=== PATIENT | male | born 1960 | race Caucasian/White ===

== ENCOUNTER 2016-11-29 08:34 | Emergency (ER) | payer OTHER ==
[~2016-11-29] VITALS: Ht 175.3 cm; Wt 75.0 kg
[~2016-11-29 08:34] MED LIST: AUGMENTIN875 MG PO; AZITHROMYCIN250 MG PO; BACTRIM DS PO; CALMOSEPTINE O120 GM TP; CARBIDOPA-LEVO1 EAC7 PO; CARBIDOPA/LEVO1 EACH PO; CEFDINIR250 MG/51 GT; CEFDINIR300 MG PO; CEFTIN500 MG GT; CEFTIN500 MG PO; CLONAZEPAM0.5 MG PO; CLONAZEPAM1 MG PO; CLOZAPINE25 MG PO; CLOZARIL25 MG GT; CRANBERRY400 M1 PO; CRANBERRY400 MG PO; Cranberry PO; DEPAKOTE500 MG GT; DEPAKOTE500 MG PO; DESITIN113 G1 TP; DIVALPROEX SOD500 MG PO; DOCUSATE SODIU100 MG PO; DOXYCYCLINE HY100 M3 PO; DUONEB 2.5-0.5 M3 ML IH; Depakote PO; ESCITALOPRAM OX10 MG PO; FLORASTOR250 MG PO; FUROSEMIDE20 MG GT; FUROSEMIDE20 MG PO; FUROSEMIDE40 MG GT; HIPREX1 GM PO; HYDROCODON-ACE1 EAC7 PO; K-DUR20 MEQ PO; KEFLEX500 MG PO; KLONOPIN1 MG GT; KlonoPIN PO; LASIX20 MG PO; LEVAQUIN750 MG PO; LEVOFLOXACIN500 MG PO; LEXAPRO10 MG GT; LEXAPRO10 MG PO; LINZESS290 MCG PO; LOPRESSOR25 MG GT; LOTRISONE15 GM TP; Lasix PO; Lexapro PO; METHENAMINE HIPP1 G1 GT; METHENAMINE HIPP1 G1 PO; METHENAMINE HIPP1 GM PO; METOPROLOL SUCC25 MG GT; METOPROLOL SUCC25 MG PO; METOPROLOL TART25 MG PO; MIRALAX17 GM GT; MIRALAX17 GM PO; MIRALAX255 GM PO; MUCINEX D ER T1 EACH PO; NEUPRO; NEUPRO1 EAC3 TD; NIZORAL 2% CREA15 GM TP; NIZORAL SHAMPO120 ML TP; NIZORAL120 ML PO; NYSTOP60 GM TP; PEDIADERM TA 0115 GM TP; POLYETHYLENE GL17 GM GT; PREDNISONE20 MG PO; SEROQUEL50 MG PO; SILVADENE20 GM TP; SINEMET CR 25-1 EACH PO; Sinemet 25-100 PO; THERACRAN650 MG GT; THERACRAN650 MG PO; TYLENOL EXTRA500 MG GT; VALPROIC A250 MG/5 M GT; VENTOLIN HFA18 GM IH; XARELTO15 MG PO; XARELTO20 MG GT; XARELTO20 MG PO; ZITHROMAX Z-PA250 MG PO; [UNRECOGNIZED DRUG - OTHER] TP
[2016-11-29] MEDS ORDERED: MIRALAX17 GM PO (09:01)
[2016-11-29] MEDS ORDERED: FEOSOL300 MG/5 M PO (09:02)
[2016-11-29 14:10] VITALS: BP 119/73
== END 2016-11-29 14:11 | disposition home or self-care (01) ==
LOC: EME 08:34
PROC: 0D20XUZ Change Feeding Device in Upper Intestinal Tract, External Approach (ICD-10-PCS; principal; 2016-11-29)
DX: K94.29 Other complications of gastrostomy (principal); G80.9 Cerebral palsy, unspecified; F79 Unspecified intellectual disabilities; J44.9 Chronic obstructive pulmonary disease, unspecified; G20 Parkinson's disease; J45.909 Unspecified asthma, uncomplicated; I10 Essential (primary) hypertension; Z86.73 Personal history of transient ischemic attack (TIA), and cerebral infarction without residual deficits; Z87.440 Personal history of urinary (tract) infections; Z87.820 Personal history of traumatic brain injury; Z86.14 Personal history of Methicillin resistant Staphylococcus aureus infection; Z87.891 Personal history of nicotine dependence
CPT/HCPCS: 74000; 99281; 99284; B4087

== ENCOUNTER → 2016-12-29 | Outpatient (CLI) | payer OTHER ==
[~2016-12-29] MED LIST changes: +FEOSOL300 MG/5 M PO
== END | disposition home or self-care (01) ==
LOC: AMB 12:37
DX: K94.23 Gastrostomy malfunction (principal); J45.909 Unspecified asthma, uncomplicated; Z86.59 Personal history of other mental and behavioral disorders; G20 Parkinson's disease

== ENCOUNTER 2017-02-18 10:46 | Inpatient (IN) | payer OTHER ==
[~2017-02-18] VITALS: Ht 175.3 cm; Wt 71.2 kg
[2017-02-18 12:51] LABS: EOSINOPHIL (%) 0.5 % (0-5); IMMATURE GRANULOCYTE (%) 0.6 % (0.0-0.7); IMMATURE GRANULOCYTE COUNT 0.1 K/uL; INSTRUMENT ABS NEUTROPHIL CT 5.2 K/uL; LYMPHOCYTE COUNT 2.1 K/uL (1.0-2.8); MCH 30.1 PG (29.0-34.0); MCHC 29.6 G/DL (30.0-36.0); MCV 101.4 FL (86-99); MEAN PLAT.VOLUME 10.9 uM^3 (9.0-12.4); MONOCYTE (%) 7.3 % (3-12); MONOCYTE COUNT 0.6 K/uL (0-0.8); NEUTROPHIL (%) 65.1 % (45-76); NEUTROPHIL COUNT 5.2 K/uL (1.8-6.4); PLATELET COUNT 118 K/uL (156-360); RBC DIS.WIDTH-CV 16.9 % (11.8-14.6); RBC DIS.WIDTH-SD 62.6 % (39-53); RED BLOOD COUNT 2.76 M/uL (4.00-5.50); WHITE BLOOD COUNT 8.1 K/uL (4.1-10.2)
[2017-02-18 13:03] LABS: CHLORIDE 113 mEq/L (99-109); POTASSIUM 5.4 mEq/L (3.7-5.4); SODIUM 155 mEq/L (136-147)
[2017-02-18 13:05] LABS: GLUCOSE 80 mg/dL (70-99)
[2017-02-18 13:06] LABS: ANION GAP 10 MEQ/L (2-14)
[2017-02-18 13:07] LABS: TOTAL BILIRUBIN 0.2 mg/dL (0.0-1.0)
[2017-02-18 13:08] LABS: ALKALINE PHOSPHATASE 69 IU/L (3-129)
[2017-02-18 13:09] LABS: GFR ESTIMATE (CALCULATED) 24 mL/min/
[2017-02-18 13:12] LABS: CREATINE KINASE 33 IU/L (1-294); LIPASE 66 U/L (1.0-51.0)
[2017-02-18 13:13] LABS: UREA NITROGEN (BUN) 109 mg/dL (9-23)
[2017-02-18 13:35] LABS: ADD MIUA? YES; BILIRUBIN NEGATIVE; BLOOD LARGE; COLOR AMBER ((YELLOW)); GLUCOSE (STRIP) NEGATIVE; KETONES NEGATIVE; LEUKOCYTES LARGE; NITRITE NEGATIVE; PROTEIN (STRIP) 100; SPECIFIC GRAVITY 1.011 (1.000-1.030); UROBILINOGEN 0.2 MG/DL (0.2-1.0)
[2017-02-18 14:45] LABS: WHITE BLOOD CELLS TNTC /HPF (0-5)
[2017-02-18] MEDS ORDERED: FEOSOL44 MG/ML GT (17:11)
[2017-02-18] MEDS ORDERED: THERACRAN650 MG GT (17:13)
[2017-02-18] MEDS ORDERED: METHENAMINE HIPP1 G1 GT (17:13)
[2017-02-18] MEDS ORDERED: NEUPRO1 EAC3 TD (17:13)
[2017-02-18] MEDS ORDERED: GENTAMICIN SULFA5 ML BOTH EYES (17:13)
[2017-02-18] MEDS ORDERED: BIOTENE MOISTUR45 ML PO (17:14)
[2017-02-18 20:00] VITALS: BP 127/67
[2017-02-19] VITALS: BP 148/84
[2017-02-19 04:00] VITALS: BP 122/70
[2017-02-19 05:12] LABS: METH RESISTANT S AUREUS PCR POSITIVE (NEGATIVE)
[2017-02-19 05:19] LABS: PROBE CHECK PASS
[2017-02-19 07:43] LABS: HEMATOCRIT 27.6 % (38.0-50.0); MCH 30.1 PG (29.0-34.0); MCHC 29.3 G/DL (30.0-36.0); MCV 102.6 FL (86-99); MEAN PLAT.VOLUME 11.4 uM^3 (9.0-12.4); NRBC (%) 0.3 /100 WBC (0-0); PLATELET COUNT 121 K/uL (156-360); RBC DIS.WIDTH-SD 63.3 % (39-53); RED BLOOD COUNT 2.69 M/uL (4.00-5.50); WHITE BLOOD COUNT 7.9 K/uL (4.1-10.2)
[2017-02-19 07:51] VITALS: BP 121/61
[2017-02-19 07:58] LABS: ANION GAP 9 MEQ/L (2-14); CHLORIDE 118 MEQ/L (99-109); GFR ESTIMATE (CALCULATED) 31 mL/min/; GLUCOSE 80 mg/dL (70-99); POTASSIUM 4.4 MEQ/L (3.7-5.4); SAMPLE HEMOLYSIS CHECK 0; SAMPLE ICTERIC CHECK 0; SAMPLE LIPEMIA CHECK 0; SODIUM 157 MEQ/L (136-147); UREA NITROGEN (BUN) 85 mg/dL (9-23)
[2017-02-19 11:01] VITALS: BP 125/68
[2017-02-19 15:27] VITALS: BP 120/79
[2017-02-19 20:00] VITALS: BP 156/95
[2017-02-19 23:06] LABS: POINT-OF-CARE METER ID UU14188625
[2017-02-20] VITALS (7 sets, daily range): BP systolic 104–135; BP diastolic 59–72
[2017-02-20 05:48] LABS: HEMATOCRIT 24.1 % (38.0-50.0); MCHC 31.1 G/DL (30.0-36.0); MCV 99.6 FL (86-99); MEAN PLAT.VOLUME 10.7 uM^3 (9.0-12.4); PLATELET COUNT 106 K/uL (156-360); RBC DIS.WIDTH-CV 16.5 % (11.8-14.6); RED BLOOD COUNT 2.42 M/uL (4.00-5.50)
[2017-02-20 09:51] LABS: CHLORIDE 112 mEq/L (99-109); POTASSIUM 4.7 mEq/L (3.7-5.4)
[2017-02-20 09:53] LABS: GLUCOSE 91 mg/dL (70-99)
[2017-02-20 09:55] LABS: ANION GAP 9 MEQ/L (2-14); SODIUM 144 mEq/L (136-147)
[2017-02-20 09:57] LABS: GFR ESTIMATE (CALCULATED) 42 mL/min/
[2017-02-20 09:58] LABS: UREA NITROGEN (BUN) 68 mg/dL (9-23)
[2017-02-20 12:16] LABS: POINT-OF-CARE METER ID UU14174225
[2017-02-20 12:44] LABS: ADD MIUA? YES; BILIRUBIN NEGATIVE; BLOOD LARGE; COLOR YELLOW ((YELLOW)); GLUCOSE (STRIP) NEGATIVE; KETONES NEGATIVE; LEUKOCYTES MODERATE; NITRITE NEGATIVE; PROTEIN (STRIP) 100; SPECIFIC GRAVITY 1.006 (1.000-1.030); UROBILINOGEN 0.2 MG/DL (0.2-1.0)
[2017-02-20 14:17] LABS: RED BLOOD CELLS TNTC /HPF (0-5)
[2017-02-20 14:19] LABS: BACTERIA 1+ /HPF; EPITHELIAL CELLS 1+ /HPF; MUCUS NONE SEEN /LPF; UCUL ADDED? NO
[2017-02-20 16:24] LABS: POINT-OF-CARE METER ID UU14174225
[2017-02-21 04:00] VITALS: BP 121/65
[2017-02-21 07:42] LABS: ANION GAP 7 MEQ/L (2-14); GFR ESTIMATE (CALCULATED) 48 mL/min/; GLUCOSE 81 mg/dL (70-99); POTASSIUM 4.1 MEQ/L (3.7-5.4); SAMPLE HEMOLYSIS CHECK 0; SAMPLE ICTERIC CHECK 0; SAMPLE LIPEMIA CHECK 0; SODIUM 138 MEQ/L (136-147); UREA NITROGEN (BUN) 50 mg/dL (9-23)
[2017-02-21 07:43] LABS: CHLORIDE 106 MEQ/L (99-109)
[2017-02-21 09:10] VITALS: BP 124/65
[2017-02-21 09:43] LABS: HEMATOCRIT 25.3 % (38.0-50.0); MCH 30.2 PG (29.0-34.0); MCHC 31.6 G/DL (30.0-36.0); MEAN PLAT.VOLUME 10.9 uM^3 (9.0-12.4); PLATELET COUNT 102 K/uL (156-360); RBC DIS.WIDTH-CV 16.1 % (11.8-14.6); RBC DIS.WIDTH-SD 55.8 % (39-53); RED BLOOD COUNT 2.65 M/uL (4.00-5.50); WHITE BLOOD COUNT 7.4 K/uL (4.1-10.2)
[2017-02-21 09:54] LABS: MCV 95.5 FL (86-99)
[2017-02-21 12:59] VITALS: BP 122/64
[2017-02-21 20:21] VITALS: BP 139/67
[2017-02-22 00:25] VITALS: BP 157/74
[2017-02-22 06:11] LABS: POINT-OF-CARE METER ID UU14188625
[2017-02-22 07:51] LABS: ANION GAP 7 MEQ/L (2-14); CHLORIDE 104 MEQ/L (99-109); GFR ESTIMATE (CALCULATED) 44 mL/min/; GLUCOSE 74 mg/dL (70-99); POTASSIUM 4.3 MEQ/L (3.7-5.4); SAMPLE HEMOLYSIS CHECK 0; SAMPLE ICTERIC CHECK 0; SAMPLE LIPEMIA CHECK 0; SODIUM 138 MEQ/L (136-147); UREA NITROGEN (BUN) 51 mg/dL (9-23)
[2017-02-22 07:59] VITALS: BP 119/62
[2017-02-22 15:35] VITALS: BP 120/68
[2017-02-23 04:00] VITALS: BP 109/68
[2017-02-23 08:10] VITALS: BP 131/76
[2017-02-23 09:47] LABS: ANION GAP 7 MEQ/L (2-14); CHLORIDE 105 MEQ/L (99-109); GFR ESTIMATE (CALCULATED) 42 mL/min/; GLUCOSE 83 mg/dL (70-99); POTASSIUM 3.6 MEQ/L (3.7-5.4); SAMPLE HEMOLYSIS CHECK 0; SAMPLE ICTERIC CHECK 0; SAMPLE LIPEMIA CHECK 0; SODIUM 139 MEQ/L (136-147); UREA NITROGEN (BUN) 59 mg/dL (9-23)
== END 2017-02-23 15:11 | disposition home health service (06) | DRG 683 ==
LOC: EME 10:46 → 5SOUTH 16:35 → EDOF 16:35 → 5SOUTH 17:57
PROVIDERS: Hospitalist; Internal Medicine; Internal Medicine Nephrology; Nurse Practitioner Adult Health; Physician Assistant
DX: N17.9 Acute kidney failure, unspecified (principal); N39.0 Urinary tract infection, site not specified; E87.0 Hyperosmolality and hypernatremia; E44.1 Mild protein-calorie malnutrition; L89.512 Pressure ulcer of right ankle, stage 2; G20 Parkinson's disease; D69.6 Thrombocytopenia, unspecified; E86.0 Dehydration; Z68.23 Body mass index [BMI] 23.0-23.9, adult; D50.9 Iron deficiency anemia, unspecified; K59.00 Constipation, unspecified; E87.5 Hyperkalemia; I10 Essential (primary) hypertension; F32.9 Major depressive disorder, single episode, unspecified; N28.1 Cyst of kidney, acquired; F79 Unspecified intellectual disabilities; Z93.1 Gastrostomy status; Z87.820 Personal history of traumatic brain injury; Z85.038 Personal history of other malignant neoplasm of large intestine
CPT/HCPCS: 71250; 74176; 76770; 80048; 80048 91; 80053; 80069; 81003; 82550; 82948; 83605; 83690; 85025; 85027; 87040; 87086; 87641; 94640; 94640 76; 94760; 99202; 99281; 99285; J0696; J7030; J7050; J7070

== ENCOUNTER 2017-02-28 12:35 | Inpatient (IN) | payer OTHER ==
[~2017-02-28] VITALS: Ht 175.3 cm; Wt 72.1 kg
[~2017-02-28 12:35] MED LIST changes: +BIOTENE MOISTUR45 ML PO; +FEOSOL44 MG/ML GT; +GENTAMICIN SULFA5 ML BOTH EYES
[2017-02-28 13:56] LABS: EOSINOPHIL (%) 0.8 % (0-5); EOSINOPHIL COUNT 0.1 K/uL (0-0.3); HEMATOCRIT 23.9 % (38.0-50.0); IMMATURE GRANULOCYTE (%) 0.5 % (0.0-0.7); INSTRUMENT ABS NEUTROPHIL CT 4.3 K/uL; LYMPHOCYTE COUNT 1.9 K/uL (1.0-2.8); MCH 30.5 PG (29.0-34.0); MCHC 30.5 G/DL (30.0-36.0); MONOCYTE (%) 5.9 % (3-12); MONOCYTE COUNT 0.4 K/uL (0-0.8); NEUTROPHIL (%) 64.8 % (45-76); NEUTROPHIL COUNT 4.3 K/uL (1.8-6.4); RBC DIS.WIDTH-CV 16.6 % (11.8-14.6); RBC DIS.WIDTH-SD 61.7 % (39-53); RED BLOOD COUNT 2.39 M/uL (4.00-5.50); WHITE BLOOD COUNT 6.7 K/uL (4.1-10.2)
[2017-02-28 14:01] LABS: CHLORIDE 107 mEq/L (99-109); SODIUM 141 mEq/L (136-147)
[2017-02-28 14:02] LABS: GLUCOSE 82 mg/dL (70-99)
[2017-02-28 14:04] LABS: ANION GAP 8 MEQ/L (2-14)
[2017-02-28 14:06] LABS: GFR ESTIMATE (CALCULATED) 39 mL/min/
[2017-02-28 14:07] LABS: UREA NITROGEN (BUN) 62 mg/dL (9-23)
[2017-02-28 14:12] LABS: POTASSIUM 4.8 mEq/L (3.7-5.4)
[2017-02-28 14:13] LABS: ADD MIUA? YES; BILIRUBIN NEGATIVE; BLOOD LARGE; COLOR YELLOW ((YELLOW)); GLUCOSE (STRIP) NEGATIVE; KETONES NEGATIVE; LEUKOCYTES TRACE; NITRITE NEGATIVE; PROTEIN (STRIP) 100; UROBILINOGEN 0.2 MG/DL (0.2-1.0)
[2017-02-28 14:13] LABS: TROP-I INTERPRETATION NEGATIVE; TROPONIN-I < 0.01 ng/mL (0.0-0.30)
[2017-02-28 14:22] LABS: BACTERIA NONE SEEN /HPF; EPITHELIAL CELLS 2+ /HPF; MUCUS NONE SEEN /LPF; RED BLOOD CELLS TNTC /HPF (0-5); UCUL ADDED? NO; WHITE BLOOD CELLS 20-30 /HPF (0-5)
[2017-02-28 15:15] LABS: MEAN PLAT.VOLUME 11.3 uM^3 (9.0-12.4); PLAT.SUFFICIENCY DECREASED; PLATELET COUNT 118 K/uL (156-360)
[2017-02-28] MEDS ORDERED: ALOE VERA TP (18:32)
[2017-02-28 22:45] VITALS: BP 161/72
[2017-02-28 23:19] LABS: HEMATOCRIT 24.3 % (38.0-50.0); MCV 100.4 FL (86-99)
[2017-03-01] VITALS (13 sets, daily range): BP systolic 122–153; BP diastolic 60–97
[2017-03-01 07:47] LABS: ANION GAP 5 MEQ/L (2-14); CHLORIDE 116 MEQ/L (99-109); GFR ESTIMATE (CALCULATED) 44 mL/min/; GLUCOSE 75 mg/dL (70-99); POTASSIUM 4.9 MEQ/L (3.7-5.4); SAMPLE HEMOLYSIS CHECK 0; SAMPLE ICTERIC CHECK 0; SAMPLE LIPEMIA CHECK 0; SODIUM 146 MEQ/L (136-147); UREA NITROGEN (BUN) 49 mg/dL (9-23)
[2017-03-01 07:55] LABS: EOSINOPHIL COUNT 0.1 K/uL (0-0.3); HEMATOCRIT 22.1 % (38.0-50.0); IMMATURE GRANULOCYTE (%) 0.3 % (0.0-0.7); INSTRUMENT ABS NEUTROPHIL CT 3.4 K/uL; LYMPHOCYTE COUNT 1.8 K/uL (1.0-2.8); MCH 30.6 PG (29.0-34.0); MCHC 30.8 G/DL (30.0-36.0); MCV 99.5 FL (86-99); MEAN PLAT.VOLUME 10.7 uM^3 (9.0-12.4); MONOCYTE (%) 6.8 % (3-12); MONOCYTE COUNT 0.4 K/uL (0-0.8); NEUTROPHIL (%) 59.6 % (45-76); NEUTROPHIL COUNT 3.4 K/uL (1.8-6.4); PLATELET COUNT 98 K/uL (156-360); RBC DIS.WIDTH-CV 16.2 % (11.8-14.6); RBC DIS.WIDTH-SD 58.5 % (39-53); RED BLOOD COUNT 2.22 M/uL (4.00-5.50); WHITE BLOOD COUNT 5.7 K/uL (4.1-10.2)
[2017-03-01 08:31] LABS: IMM.RETIC FRACTION 11.1 % (3-19); RETIC HGB EQUIVALENT 34.7 (28-36); RETICULOCYTE COUNT 3.2 % (0.5-1.8)
[2017-03-01 09:13] LABS: FERRITIN 163 NG/ML (22-322); IRON 75 MCG/DL (35-150); LACTATE DEHYDROGENASE 187 IU/L (20-246)
[2017-03-01 21:00] LABS: HEMATOCRIT 31.5 % (38.0-50.0); MCV 94.9 FL (86-99)
[2017-03-02 03:53] VITALS: BP 168/98
[2017-03-02 08:38] VITALS: BP 126/76
[2017-03-02 09:36] LABS: EOSINOPHIL COUNT 0.1 K/uL (0-0.3); HEMATOCRIT 31.1 % (38.0-50.0); IMMATURE GRANULOCYTE (%) 0.4 % (0.0-0.7); INSTRUMENT ABS NEUTROPHIL CT 5.1 K/uL; MCH 29.9 PG (29.0-34.0); MCHC 31.8 G/DL (30.0-36.0); MEAN PLAT.VOLUME 10.1 uM^3 (9.0-12.4); MONOCYTE (%) 6.3 % (3-12); MONOCYTE COUNT 0.5 K/uL (0-0.8); NEUTROPHIL (%) 65.8 % (45-76); NEUTROPHIL COUNT 5.1 K/uL (1.8-6.4); PLATELET COUNT 103 K/uL (156-360); RBC DIS.WIDTH-CV 17.6 % (11.8-14.6); RBC DIS.WIDTH-SD 60.1 % (39-53)
[2017-03-02 09:38] LABS: RED BLOOD COUNT 3.31 M/uL (4.00-5.50); WHITE BLOOD COUNT 7.8 K/uL (4.1-10.2)
[2017-03-02 09:42] LABS: ANION GAP 4 MEQ/L (2-14); CHLORIDE 118 MEQ/L (99-109); GFR ESTIMATE (CALCULATED) 44 mL/min/; GLOBULINS 3.3 G/DL (2.3-3.5); GLUCOSE 92 mg/dL (70-99); MAGNESIUM 2.1 mg/dl (1.3-2.7); POTASSIUM 4.5 MEQ/L (3.7-5.4); SAMPLE HEMOLYSIS CHECK 0; SAMPLE ICTERIC CHECK 0; SAMPLE LIPEMIA CHECK 0; SODIUM 148 MEQ/L (136-147); UREA NITROGEN (BUN) 42 mg/dL (9-23)
[2017-03-02 15:51] VITALS: BP 117/92
[2017-03-02 23:09] VITALS: BP 120/80
[2017-03-03 06:28] LABS: EOSINOPHIL (%) 1.4 % (0-5); EOSINOPHIL COUNT 0.1 K/uL (0-0.3); HEMATOCRIT 30.6 % (38.0-50.0); IMMATURE GRANULOCYTE (%) 0.4 % (0.0-0.7); INSTRUMENT ABS NEUTROPHIL CT 5.2 K/uL; LYMPHOCYTE COUNT 1.8 K/uL (1.0-2.8); MCH 29.6 PG (29.0-34.0); MCHC 31.7 G/DL (30.0-36.0); MCV 93.3 FL (86-99); MEAN PLAT.VOLUME 9.8 uM^3 (9.0-12.4); MONOCYTE (%) 6.6 % (3-12); MONOCYTE COUNT 0.5 K/uL (0-0.8); NEUTROPHIL (%) 68.3 % (45-76); NEUTROPHIL COUNT 5.2 K/uL (1.8-6.4); PLATELET COUNT 95 K/uL (156-360); RBC DIS.WIDTH-CV 17.2 % (11.8-14.6); RBC DIS.WIDTH-SD 58.6 % (39-53); RED BLOOD COUNT 3.28 M/uL (4.00-5.50); WHITE BLOOD COUNT 7.7 K/uL (4.1-10.2)
[2017-03-03 06:51] LABS: ANION GAP 7 MEQ/L (2-14); CHLORIDE 119 MEQ/L (99-109); GFR ESTIMATE (CALCULATED) 44 mL/min/; GLUCOSE 79 mg/dL (70-99); POTASSIUM 4.8 MEQ/L (3.7-5.4); SAMPLE HEMOLYSIS CHECK 0; SAMPLE ICTERIC CHECK 0; SAMPLE LIPEMIA CHECK 0; SODIUM 151 MEQ/L (136-147); UREA NITROGEN (BUN) 42 mg/dL (9-23)
[2017-03-03 07:42] VITALS: BP 175/90
[2017-03-03 11:32] LABS: ALBUMIN 2.59 G/DL (3.6-4.9); ALBUMIN PERCENT 44.6 %; ALPHA-1 GLOBULIN 0.24 G/DL (0.15-0.40); ALPHA-1 PERCENT 4.1 %; ALPHA-2 GLOBULIN 0.63 G/DL (0.45-0.85); ALPHA-2 PERCENT 10.9 %; BETA PERCENT 11.5 %; GAMMA PERCENT 28.9 %
[2017-03-03 11:33] LABS: SERUM GEL NO. 49-8
[2017-03-03 15:07] VITALS: BP 178/100
[2017-03-03 15:48] VITALS: BP 129/76
[2017-03-03 18:00] VITALS: BP 158/83
[2017-03-03 22:38] VITALS: BP 120/87
[2017-03-04 06:31] LABS: EOSINOPHIL (%) 1.5 % (0-5); EOSINOPHIL COUNT 0.1 K/uL (0-0.3); HEMATOCRIT 30.4 % (38.0-50.0); IMMATURE GRANULOCYTE (%) 0.5 % (0.0-0.7); INSTRUMENT ABS NEUTROPHIL CT 4.1 K/uL; LYMPHOCYTE COUNT 1.8 K/uL (1.0-2.8); MCH 30.2 PG (29.0-34.0); MCHC 32.2 G/DL (30.0-36.0); MCV 93.8 FL (86-99); MONOCYTE (%) 7.1 % (3-12); MONOCYTE COUNT 0.5 K/uL (0-0.8); NEUTROPHIL (%) 63.4 % (45-76); NEUTROPHIL COUNT 4.1 K/uL (1.8-6.4); PLATELET COUNT 85 K/uL (156-360); RBC DIS.WIDTH-SD 57.2 % (39-53); RED BLOOD COUNT 3.24 M/uL (4.00-5.50); WHITE BLOOD COUNT 6.5 K/uL (4.1-10.2)
[2017-03-04 06:58] LABS: ANION GAP 7 MEQ/L (2-14); CHLORIDE 111 MEQ/L (99-109); GFR ESTIMATE (CALCULATED) 48 mL/min/; GLUCOSE 76 mg/dL (70-99); SAMPLE HEMOLYSIS CHECK 0; SAMPLE ICTERIC CHECK 0; SAMPLE LIPEMIA CHECK 0; SODIUM 143 MEQ/L (136-147); UREA NITROGEN (BUN) 44 mg/dL (9-23)
[2017-03-04 07:56] VITALS: BP 132/78
[2017-03-04 16:55] VITALS: BP 169/89
[2017-03-04 23:05] VITALS: BP 122/80
[2017-03-05 07:12] VITALS: BP 133/84
[2017-03-05 08:39] LABS: ANION GAP 3 MEQ/L (2-14); CHLORIDE 109 MEQ/L (99-109); EOSINOPHIL (%) 1.7 % (0-5); EOSINOPHIL COUNT 0.1 K/uL (0-0.3); GFR ESTIMATE (CALCULATED) 48 mL/min/; GLUCOSE 80 mg/dL (70-99); HEMATOCRIT 31.4 % (38.0-50.0); IMMATURE GRANULOCYTE (%) 0.4 % (0.0-0.7); INSTRUMENT ABS NEUTROPHIL CT 4.5 K/uL; LYMPHOCYTE COUNT 1.9 K/uL (1.0-2.8); MAGNESIUM 2.2 mg/dl (1.3-2.7); MCH 29.7 PG (29.0-34.0); MCHC 32.2 G/DL (30.0-36.0); MCV 92.4 FL (86-99); MEAN PLAT.VOLUME 10.2 uM^3 (9.0-12.4); MONOCYTE (%) 6.6 % (3-12); MONOCYTE COUNT 0.5 K/uL (0-0.8); NEUTROPHIL (%) 63.9 % (45-76); NEUTROPHIL COUNT 4.5 K/uL (1.8-6.4); PLATELET COUNT 78 K/uL (156-360); POTASSIUM 4.4 MEQ/L (3.7-5.4); RBC DIS.WIDTH-CV 16.5 % (11.8-14.6); RBC DIS.WIDTH-SD 56.3 % (39-53); SAMPLE HEMOLYSIS CHECK 0; SAMPLE ICTERIC CHECK 0; SAMPLE LIPEMIA CHECK 0; SODIUM 140 MEQ/L (136-147); UREA NITROGEN (BUN) 47 mg/dL (9-23)
== END 2017-03-05 15:25 | disposition home health service (06) | DRG 812 ==
LOC: EME 12:35 → EDOF 20:03 → 5EAST 20:03
PROVIDERS: Emergency Medicine; Family Medicine; Internal Medicine
PROC: 30233N1 Transfusion of Nonautologous Red Blood Cells into Peripheral Vein, Percutaneous Approach (ICD-10-PCS; principal; 2017-03-01)
DX: D53.9 Nutritional anemia, unspecified (principal); N17.9 Acute kidney failure, unspecified; E87.2 Acidosis; R47.01 Aphasia; R78.81 Bacteremia; E87.0 Hyperosmolality and hypernatremia; Z66 Do not resuscitate; I12.9 Hypertensive chronic kidney disease with stage 1 through stage 4 chronic kidney disease, or unspecified chronic kidney disease; I95.9 Hypotension, unspecified; D69.6 Thrombocytopenia, unspecified; Z87.820 Personal history of traumatic brain injury; N18.9 Chronic kidney disease, unspecified; L89.321 Pressure ulcer of left buttock, stage 1; G20 Parkinson's disease; L89.311 Pressure ulcer of right buttock, stage 1; J44.9 Chronic obstructive pulmonary disease, unspecified; R31.29 Other microscopic hematuria; N31.2 Flaccid neuropathic bladder, not elsewhere classified; R32 Unspecified urinary incontinence; N28.1 Cyst of kidney, acquired; Z93.1 Gastrostomy status; Z86.73 Personal history of transient ischemic attack (TIA), and cerebral infarction without residual deficits; Z99.3 Dependence on wheelchair; Z87.891 Personal history of nicotine dependence; Z85.038 Personal history of other malignant neoplasm of large intestine; Z87.440 Personal history of urinary (tract) infections; Z86.14 Personal history of Methicillin resistant Staphylococcus aureus infection; Z83.3 Family history of diabetes mellitus; Z80.0 Family history of malignant neoplasm of digestive organs
CPT/HCPCS: 71010; 80048; 81003; 82607; 82728; 82746; 83540; 83605; 83615; 83735; 83883 90; 84165; 84466; 84484; 85014; 85018; 85025; 85045; 86850; 86900; 86901; 86920; 87040; 87086; 87801; 93005; 94640; 94640 76; 94760; 99202; 99281; 99285; J0360; J0696; J3370; J7030; J7050; J7070; P9016

== ENCOUNTER 2017-04-02 09:12 | Emergency (ER) | payer OTHER ==
[~2017-04-02] VITALS: Ht 175.3 cm; Wt 70.0 kg
[~2017-04-02 09:12] MED LIST changes: +ALOE VERA TP
[2017-04-02 11:36] VITALS: BP 117/69
== END 2017-04-02 11:37 | disposition home or self-care (01) ==
LOC: EME 09:12
PROC: 0D20XUZ Change Feeding Device in Upper Intestinal Tract, External Approach (ICD-10-PCS; principal; 2017-04-02)
DX: Z43.1 Encounter for attention to gastrostomy (principal); G80.9 Cerebral palsy, unspecified; F79 Unspecified intellectual disabilities; J44.9 Chronic obstructive pulmonary disease, unspecified; J45.909 Unspecified asthma, uncomplicated; G20 Parkinson's disease; Z87.440 Personal history of urinary (tract) infections; Z87.820 Personal history of traumatic brain injury; Z87.891 Personal history of nicotine dependence
CPT/HCPCS: 74000; 99281; 99284

== ENCOUNTER 2017-06-03 21:16 | Emergency (ER) | payer OTHER ==
[~2017-06-03] VITALS: Ht 172.7 cm; Wt 70.7 kg
[2017-06-04 00:04] VITALS: BP 100/71
== END 2017-06-04 00:05 | disposition home or self-care (01) ==
LOC: EME → EDBD 21:16 → EME 06-04 00:05
DX: R04.2 Hemoptysis (principal); Z86.711 Personal history of pulmonary embolism; J45.909 Unspecified asthma, uncomplicated; I10 Essential (primary) hypertension; Z86.73 Personal history of transient ischemic attack (TIA), and cerebral infarction without residual deficits; Z87.891 Personal history of nicotine dependence; G80.9 Cerebral palsy, unspecified; Z79.01 Long term (current) use of anticoagulants
CPT/HCPCS: 71020; 99281; 99284

== ENCOUNTER 2017-06-12 19:18 | Emergency (ER) | payer OTHER ==
[~2017-06-12] VITALS: Ht 175.3 cm; Wt 67.3 kg
[2017-06-12 20:47] VITALS: BP 130/77
== END 2017-06-12 20:47 | disposition home or self-care (01) ==
LOC: EME 19:18 → RME 19:18
DX: K94.23 Gastrostomy malfunction (principal); G20 Parkinson's disease; Z86.73 Personal history of transient ischemic attack (TIA), and cerebral infarction without residual deficits; F79 Unspecified intellectual disabilities; G80.9 Cerebral palsy, unspecified; I10 Essential (primary) hypertension; J44.9 Chronic obstructive pulmonary disease, unspecified; Z87.891 Personal history of nicotine dependence
CPT/HCPCS: 74000; 99281; 99283

== ENCOUNTER 2017-07-30 15:08 | Emergency (ER) | payer OTHER ==
[~2017-07-30] VITALS: Ht 175.3 cm; Wt 67.2 kg
[2017-07-30] MEDS ORDERED: NEOMYCIN-POLYMY10 M1 RIGHT EAR (17:10)
[2017-07-30] MEDS ORDERED: POLYTRIM EYE DR10 ML BOTH EYES (17:10)
[2017-07-30] MEDS ORDERED: KEFLEX250 MG/5 M GT (17:10)
[2017-07-30] MEDS ORDERED: BACTRIM,SEPTRA S1 ML GT (17:14)
[2017-07-30 17:33] VITALS: BP 93/61
== END 2017-07-30 17:35 | disposition home or self-care (01) ==
LOC: EME 15:08
DX: H60.11 Cellulitis of right external ear (principal); H61.23 Impacted cerumen, bilateral; H10.33 Unspecified acute conjunctivitis, bilateral; G80.9 Cerebral palsy, unspecified; J44.9 Chronic obstructive pulmonary disease, unspecified; I10 Essential (primary) hypertension; Z79.01 Long term (current) use of anticoagulants; Z93.1 Gastrostomy status; Z87.891 Personal history of nicotine dependence; Z99.3 Dependence on wheelchair
CPT/HCPCS: 99281; 99283

== ENCOUNTER → 2017-10-14 | Emergency (ER) | payer OTHER ==
[~2017-10-14] VITALS: Ht 175.3 cm; Wt 70.0 kg
[~2017-10-14] MED LIST changes: +BACTRIM,SEPTRA S1 ML GT; +KEFLEX250 MG/5 M GT; +NEOMYCIN-POLYMY10 M1 RIGHT EAR; +POLYTRIM EYE DR10 ML BOTH EYES
[2017-10-14 13:16] VITALS: BP 107/58
== END | disposition home or self-care (01) ==
LOC: EME 09:37
PROC: 0D20XUZ Change Feeding Device in Upper Intestinal Tract, External Approach (ICD-10-PCS; principal; 2017-10-14)
DX: Z43.1 Encounter for attention to gastrostomy (principal); G20 Parkinson's disease; G80.9 Cerebral palsy, unspecified; I10 Essential (primary) hypertension; J44.9 Chronic obstructive pulmonary disease, unspecified; Z86.73 Personal history of transient ischemic attack (TIA), and cerebral infarction without residual deficits; Z79.01 Long term (current) use of anticoagulants; Z87.891 Personal history of nicotine dependence
CPT/HCPCS: 99281; 99284; C1766; C1892

== ENCOUNTER 2017-11-01 14:15 | Inpatient (IN) | payer OTHER ==
[~2017-11-01] VITALS: Ht 175.3 cm; Wt 72.5 kg
[2017-11-01 17:33] LABS: HEMATOCRIT 28.3 % (38.0-50.0); MCH 34.2 PG (29.0-34.0); MCHC 32.9 G/DL (30.0-36.0); MEAN PLAT.VOLUME 10.7 uM^3 (9.0-12.4); RBC DIS.WIDTH-CV 13.4 % (11.8-14.6); RBC DIS.WIDTH-SD 50.9 % (39-53); RED BLOOD COUNT 2.72 M/uL (4.00-5.50); WHITE BLOOD COUNT 5.8 K/uL (4.1-10.2)
[2017-11-01 17:36] LABS: PLATELET COUNT 123 K/uL (156-360)
[2017-11-01 18:03] LABS: TROP-I INTERPRETATION NEGATIVE; TROPONIN-I < 0.01 ng/mL (0.0-0.30)
[2017-11-01 18:18] LABS: CHLORIDE 102 mEq/L (99-109); POTASSIUM 5.6 mEq/L (3.7-5.4); SODIUM 137 mEq/L (136-147)
[2017-11-01 18:20] LABS: GLUCOSE 77 mg/dL (70-99)
[2017-11-01 18:21] LABS: ANION GAP 9 MEQ/L (2-14)
[2017-11-01 18:22] LABS: TOTAL BILIRUBIN 0.3 mg/dL (0.0-1.0)
[2017-11-01 18:24] LABS: ALKALINE PHOSPHATASE 107 IU/L (3-129); GFR ESTIMATE (CALCULATED) 41 mL/min/ (58.99-99999)
[2017-11-01 18:25] LABS: UREA NITROGEN (BUN) 77 mg/dL (9-23)
[2017-11-01 20:12] LABS: ADD MIUA? YES; BILIRUBIN NEGATIVE; BLOOD LARGE; COLOR YELLOW ((YELLOW)); GLUCOSE (STRIP) NEGATIVE; KETONES NEGATIVE; LEUKOCYTES LARGE; NITRITE NEGATIVE; PROTEIN (STRIP) 100; SPECIFIC GRAVITY 1.011 (1.000-1.030); UROBILINOGEN 0.2 MG/DL (0.2-1.0)
[2017-11-01 20:23] LABS: BACTERIA 2+ /HPF; EPITHELIAL CELLS RARE /HPF; MUCUS TRACE /LPF; RED BLOOD CELLS 40-50 /HPF (0-5); UCUL ADDED? YES
[2017-11-02 00:45] VITALS: BP 135/70
[2017-11-02 04:58] VITALS: BP 128/71
[2017-11-02 05:47] LABS: HEMATOCRIT 23.1 % (38.0-50.0); MCH 33.2 PG (29.0-34.0); MCHC 31.6 G/DL (30.0-36.0); MEAN PLAT.VOLUME 10.5 uM^3 (9.0-12.4); PLATELET COUNT 100 K/uL (156-360); RBC DIS.WIDTH-CV 13.5 % (11.8-14.6); RBC DIS.WIDTH-SD 51.8 % (39-53); WHITE BLOOD COUNT 5.5 K/uL (4.1-10.2)
[2017-11-02 06:05] LABS: ANION GAP 7 MEQ/L (2-14); CHLORIDE 109 MEQ/L (99-109); GFR ESTIMATE (CALCULATED) 44 mL/min/ (58.99-99999); GLUCOSE 77 mg/dL (70-99); POTASSIUM 4.7 MEQ/L (3.7-5.4); SAMPLE HEMOLYSIS CHECK 0; SAMPLE ICTERIC CHECK 0; SAMPLE LIPEMIA CHECK 0; SODIUM 142 MEQ/L (136-147); UREA NITROGEN (BUN) 72 mg/dL (9-23)
[2017-11-02 09:50] VITALS: BP 123/62
[2017-11-02 11:50] VITALS: BP 110/60
[2017-11-02 12:32] LABS: METH RESISTANT S AUREUS PCR POSITIVE (NEGATIVE)
[2017-11-02 12:38] LABS: PROBE CHECK PASS; SPECIMEN PROCESSING CONTROL PASS
[2017-11-02 16:07] VITALS: BP 130/65
[2017-11-02 20:00] VITALS: BP 100/64
[2017-11-03] VITALS (16 sets, daily range): BP systolic 100–196; BP diastolic 60–103
[2017-11-03 09:54] LABS: HEMATOCRIT 32.7 % (38.0-50.0); MCH 32.3 PG (29.0-34.0); MEAN PLAT.VOLUME 9.9 uM^3 (9.0-12.4); PLATELET COUNT 94 K/uL (156-360); RBC DIS.WIDTH-CV 15.8 % (11.8-14.6); RBC DIS.WIDTH-SD 56.1 % (39-53); WHITE BLOOD COUNT 6.3 K/uL (4.1-10.2)
[2017-11-03 09:58] LABS: MCV 97.9 FL (86-99); RED BLOOD COUNT 3.34 M/uL (4.00-5.50)
[2017-11-04 03:33] VITALS: BP 134/87
[2017-11-04 05:34] LABS: HEMATOCRIT 31.8 % (38.0-50.0); MCH 31.6 PG (29.0-34.0); MCHC 32.7 G/DL (30.0-36.0); MCV 96.7 FL (86-99); MEAN PLAT.VOLUME 9.9 uM^3 (9.0-12.4); PLATELET COUNT 100 K/uL (156-360); RED BLOOD COUNT 3.29 M/uL (4.00-5.50); WHITE BLOOD COUNT 7.8 K/uL (4.1-10.2)
[2017-11-04 05:59] LABS: ANION GAP 6 MEQ/L (2-14); CHLORIDE 114 MEQ/L (99-109); GFR ESTIMATE (CALCULATED) 51 mL/min/ (58.99-99999); GLUCOSE 86 mg/dL (70-99); POTASSIUM 4.5 MEQ/L (3.7-5.4); SAMPLE HEMOLYSIS CHECK 0; SAMPLE ICTERIC CHECK 0; SAMPLE LIPEMIA CHECK 0; SODIUM 145 MEQ/L (136-147); UREA NITROGEN (BUN) 49 mg/dL (9-23)
[2017-11-04 10:10] VITALS: BP 168/87
[2017-11-04] MEDS ORDERED: CEFTIN250 MG/5 M PO (11:02)
[2017-11-04 12:56] VITALS: BP 151/98
== END 2017-11-04 13:49 | disposition home or self-care (01) | DRG 690 ==
LOC: EME 14:15 → 5WEST 21:24 → EDOF 21:24 → ENRESERV 21:35 → 5WEST 23:24
PROVIDERS: Emergency Medicine; Hospitalist; Nurse Practitioner Adult Health; Nurse Practitioner Family
PROC: 30233N1 Transfusion of Nonautologous Red Blood Cells into Peripheral Vein, Percutaneous Approach (ICD-10-PCS; principal; 2017-11-03)
DX: N39.0 Urinary tract infection, site not specified (principal); I95.9 Hypotension, unspecified; D46.9 Myelodysplastic syndrome, unspecified; N28.9 Disorder of kidney and ureter, unspecified; I10 Essential (primary) hypertension; G20 Parkinson's disease; F79 Unspecified intellectual disabilities; D64.9 Anemia, unspecified; R47.01 Aphasia; D61.818 Other pancytopenia; D69.6 Thrombocytopenia, unspecified; G40.909 Epilepsy, unspecified, not intractable, without status epilepticus; Z66 Do not resuscitate; Z87.820 Personal history of traumatic brain injury; Z83.3 Family history of diabetes mellitus; Z86.73 Personal history of transient ischemic attack (TIA), and cerebral infarction without residual deficits; Z87.01 Personal history of pneumonia (recurrent); Z93.1 Gastrostomy status; Z85.038 Personal history of other malignant neoplasm of large intestine; Z74.01 Bed confinement status; Z99.3 Dependence on wheelchair; Z88.1 Allergy status to other antibiotic agents; Z88.8 Allergy status to other drugs, medicaments and biological substances; Z87.440 Personal history of urinary (tract) infections; Z79.01 Long term (current) use of anticoagulants; Z79.899 Other long term (current) drug therapy
CPT/HCPCS: 71020; 80048; 80053; 81003; 83605; 83880; 84484; 85027; 86850; 86870; 86900; 86901; 86905; 86920; 87040; 87077; 87086; 87086 GA; 87186; 87641; 90686; 99281; 99285; G0378; J0696; J2405; J7030; P9016; S0028

== ENCOUNTER 2017-11-11 08:47 | Emergency (ER) | payer OTHER ==
[~2017-11-11] VITALS: Ht 175.3 cm; Wt 68.1 kg
[~2017-11-11 08:47] MED LIST changes: +CEFTIN250 MG/5 M PO
[2017-11-11 08:48] VITALS: BP 162/70
[2017-11-11 09:58] LABS: BASOPHIL (%) 0.3 % (0-1); EOSINOPHIL (%) 0.7 % (0-5); EOSINOPHIL COUNT 0.1 K/uL (0-0.3); HEMATOCRIT 30.5 % (38.0-50.0); HEMOGLOBIN 10.2 G/DL (12.5-16.6); IMMATURE GRANULOCYTE (%) 0.4 % (0.0-0.7); LYMPHOCYTE (%) 26.4 % (15-42); LYMPHOCYTE COUNT 1.8 K/uL (1.0-2.8); MCH 32.6 PG (29.0-34.0); MCHC 33.4 G/DL (30.0-36.0); MCV 97.4 FL (86-99); MONOCYTE (%) 6.4 % (3-12); MONOCYTE COUNT 0.5 K/uL (0-0.8); NEUTROPHIL (%) 65.8 % (45-76); NEUTROPHIL COUNT 4.6 K/uL (1.8-6.4); PLATELET COUNT 87 K/uL (156-360); RBC DIS.WIDTH-CV 14.4 % (11.8-14.6); RBC DIS.WIDTH-SD 51.4 % (39-53); RED BLOOD COUNT 3.13 M/uL (4.00-5.50)
[2017-11-11 10:07] LABS: ALBUMIN 2.4 g/dL (3.2-4.8); CHLORIDE 105 mEq/L (99-109); POTASSIUM 5.9 mEq/L (3.7-5.4); SODIUM 137 mEq/L (136-147)
[2017-11-11 10:09] LABS: GLUCOSE 77 mg/dL (70-99); TOTAL PROTEIN 6.6 g/dL (6.4-8.3)
[2017-11-11 10:11] LABS: TOTAL BILIRUBIN 0.5 mg/dL (0.0-1.0)
[2017-11-11 10:13] LABS: ALKALINE PHOSPHATASE 75 IU/L (3-129); CREATININE 1.6 mg/dL (0.6-1.3); GFR ESTIMATE (CALCULATED) 47 mL/min/ (58.99-99999)
[2017-11-11 10:14] LABS: UREA NITROGEN (BUN) 56 mg/dL (9-23)
[2017-11-11 10:15] LABS: AST (GOT) 20 IU/L (2-34)
[2017-11-11 10:16] LABS: ALT (GPT) 13 IU/L (3-49)
[2017-11-11 10:48] LABS: APPEARANCE CLOUDY ((CLEAR)); BILIRUBIN NEGATIVE; BLOOD LARGE; COLOR YELLOW ((YELLOW)); GLUCOSE (STRIP) NEGATIVE; KETONES NEGATIVE; LEUKOCYTES LARGE; NITRITE NEGATIVE; PROTEIN (STRIP) 100; UROBILINOGEN 0.2 MG/DL (0.2-1.0)
[2017-11-11 11:02] LABS: RED BLOOD CELLS TNTC /HPF (0-5); WHITE BLOOD CELLS TNTC /HPF (0-5)
[2017-11-11 11:03] LABS: BACTERIA 1+ /HPF; EPITHELIAL CELLS 1+ /HPF; MUCUS NONE SEEN /LPF; UCUL ADDED? YES; WHITE CELL CASTS 0-5 /LPF
== END 2017-11-11 14:46 | disposition home or self-care (01) ==
LOC: EME 08:47
PROVIDERS: Physician Assistant
PROC: 0D20XUZ Change Feeding Device in Upper Intestinal Tract, External Approach (ICD-10-PCS; principal; 2017-11-11)
DX: Z43.1 Encounter for attention to gastrostomy (principal); N39.0 Urinary tract infection, site not specified; K56.41 Fecal impaction; G20 Parkinson's disease; G80.9 Cerebral palsy, unspecified; J44.9 Chronic obstructive pulmonary disease, unspecified; I12.9 Hypertensive chronic kidney disease with stage 1 through stage 4 chronic kidney disease, or unspecified chronic kidney disease; N18.9 Chronic kidney disease, unspecified; F79 Unspecified intellectual disabilities; Z87.440 Personal history of urinary (tract) infections; Z87.820 Personal history of traumatic brain injury; Z86.73 Personal history of transient ischemic attack (TIA), and cerebral infarction without residual deficits; Z87.891 Personal history of nicotine dependence; Z88.8 Allergy status to other drugs, medicaments and biological substances
CPT/HCPCS: 74000; 80053; 81003; 85025; 87077; 87086; 87186; 99281; 99285; C1894; J0696

== ENCOUNTER 2017-12-13 23:50 | Emergency (ER) | payer OTHER ==
[~2017-12-13] VITALS: Ht 175.3 cm; Wt 68.6 kg
[2017-12-14 02:51] VITALS: BP 168/121
== END 2017-12-14 02:52 | disposition home or self-care (01) ==
LOC: EME 23:50
DX: R04.0 Epistaxis (principal); Z79.01 Long term (current) use of anticoagulants; Z86.711 Personal history of pulmonary embolism; I12.9 Hypertensive chronic kidney disease with stage 1 through stage 4 chronic kidney disease, or unspecified chronic kidney disease; N18.9 Chronic kidney disease, unspecified; J44.9 Chronic obstructive pulmonary disease, unspecified; G20 Parkinson's disease; G80.9 Cerebral palsy, unspecified; F79 Unspecified intellectual disabilities; R56.9 Unspecified convulsions; N31.9 Neuromuscular dysfunction of bladder, unspecified; Z87.820 Personal history of traumatic brain injury; Z86.73 Personal history of transient ischemic attack (TIA), and cerebral infarction without residual deficits; Z87.440 Personal history of urinary (tract) infections; Z86.14 Personal history of Methicillin resistant Staphylococcus aureus infection; Z87.891 Personal history of nicotine dependence; Z88.8 Allergy status to other drugs, medicaments and biological substances
CPT/HCPCS: 93005

== ENCOUNTER 2018-01-21 09:29 | Emergency (ER) | payer OTHER ==
[~2018-01-21] VITALS: Ht 175.3 cm; Wt 68.8 kg
[2018-01-21 13:09] VITALS: BP 119/81
== END 2018-01-21 13:11 | disposition home or self-care (01) ==
LOC: EME 09:29
PROC: 0D20XUZ Change Feeding Device in Upper Intestinal Tract, External Approach (ICD-10-PCS; principal; 2018-01-21)
DX: Z43.1 Encounter for attention to gastrostomy (principal); G20 Parkinson's disease; G80.9 Cerebral palsy, unspecified; F79 Unspecified intellectual disabilities; J44.9 Chronic obstructive pulmonary disease, unspecified; I12.9 Hypertensive chronic kidney disease with stage 1 through stage 4 chronic kidney disease, or unspecified chronic kidney disease; N18.9 Chronic kidney disease, unspecified; R56.9 Unspecified convulsions; N31.9 Neuromuscular dysfunction of bladder, unspecified; Z87.891 Personal history of nicotine dependence; Z86.73 Personal history of transient ischemic attack (TIA), and cerebral infarction without residual deficits; Z87.440 Personal history of urinary (tract) infections; Z87.820 Personal history of traumatic brain injury; Z86.14 Personal history of Methicillin resistant Staphylococcus aureus infection; Z88.1 Allergy status to other antibiotic agents; Z88.8 Allergy status to other drugs, medicaments and biological substances
CPT/HCPCS: 74018; 99281; 99285

== ENCOUNTER 2018-03-25 09:53 | Inpatient (IN) | payer OTHER ==
[~2018-03-25] VITALS: Ht 175.3 cm; Wt 75.9 kg
[2018-03-25 12:10] LABS: APPEARANCE CLOUDY ((CLEAR)); BILIRUBIN NEGATIVE; BLOOD LARGE; COLOR YELLOW ((YELLOW)); GLUCOSE (STRIP) NEGATIVE; KETONES NEGATIVE; LEUKOCYTES LARGE; NITRITE POSITIVE; PROTEIN (STRIP) 100; SPECIFIC GRAVITY 1.011 (1.000-1.030); UROBILINOGEN 0.2 MG/DL (0.2-1.0)
[2018-03-25 12:12] LABS: HEMATOCRIT 28.4 % (38.0-50.0); HEMOGLOBIN 9.4 G/DL (12.5-16.6); MCH 32.8 PG (29.0-34.0); MCHC 33.1 G/DL (30.0-36.0); PLATELET COUNT 71 K/uL (156-360); RBC DIS.WIDTH-SD 54.8 % (39-53); RED BLOOD COUNT 2.87 M/uL (4.00-5.50); WHITE BLOOD COUNT 6.8 K/uL (4.1-10.2)
[2018-03-25 12:19] LABS: BACTERIA 2+ /HPF; CALCIUM OXALATE CRYSTALS 3+ /HPF; EPITHELIAL CELLS RARE /HPF; MUCUS TRACE /LPF; RED BLOOD CELLS TNTC /HPF (0-5); WHITE BLOOD CELLS TNTC /HPF (0-5)
[2018-03-25 12:20] LABS: PTT 33.1 SEC (25-37)
[2018-03-25 12:25] LABS: CHLORIDE 105 mEq/L (99-109); POTASSIUM 5.8 mEq/L (3.7-5.4); SODIUM 137 mEq/L (136-147)
[2018-03-25 12:26] LABS: GLUCOSE 72 mg/dL (70-99)
[2018-03-25 12:30] LABS: CREATININE 2.6 mg/dL (0.6-1.3); GFR ESTIMATE (CALCULATED) 27 mL/min/ (58.99-99999)
[2018-03-25 12:31] LABS: UREA NITROGEN (BUN) 90 mg/dL (9-23)
[2018-03-25 16:15] VITALS: BP 129/86
[2018-03-25 18:25] LABS: CHLORIDE 106 MEQ/L (99-109); CREATININE 2.6 MG/DL (0.6-1.3); GFR ESTIMATE (CALCULATED) 27 mL/min/ (58.99-99999); GLUCOSE 78 mg/dL (70-99); POTASSIUM 5.2 MEQ/L (3.7-5.4); SODIUM 135 MEQ/L (136-147); UREA NITROGEN (BUN) 81 mg/dL (9-23)
[2018-03-25 20:08] VITALS: BP 148/56
[2018-03-26] VITALS: BP 112/65
[2018-03-26 02:54] VITALS: BP 127/77
[2018-03-26 06:16] LABS: HEMATOCRIT 24.7 % (38.0-50.0); HEMOGLOBIN 8.1 G/DL (12.5-16.6); MCH 32.1 PG (29.0-34.0); MCHC 32.8 G/DL (30.0-36.0); RBC DIS.WIDTH-CV 14.6 % (11.8-14.6); RBC DIS.WIDTH-SD 53.5 % (39-53); RED BLOOD COUNT 2.52 M/uL (4.00-5.50); WHITE BLOOD COUNT 3.9 K/uL (4.1-10.2)
[2018-03-26 06:20] LABS: CHLORIDE 109 MEQ/L (99-109); CREATININE 2.4 MG/DL (0.6-1.3); GFR ESTIMATE (CALCULATED) 30 mL/min/ (58.99-99999); GLUCOSE 80 mg/dL (70-99); POTASSIUM 4.4 MEQ/L (3.7-5.4); SODIUM 140 MEQ/L (136-147); UREA NITROGEN (BUN) 79 mg/dL (9-23)
[2018-03-26 07:04] LABS: IMM.PLATELET FRACTION 1.5 (1-7); PLAT.SUFFICIENCY DECREASED
[2018-03-26 07:10] LABS: PLATELET COUNT 47 K/uL (156-360)
[2018-03-26 08:02] VITALS: BP 133/81
[2018-03-26 12:09] VITALS: BP 128/63
[2018-03-26 17:09] VITALS: BP 143/71
[2018-03-26 23:51] VITALS: BP 131/71
[2018-03-27 06:04] LABS: BASOPHIL (%) 0.4 % (0-1); EOSINOPHIL (%) 0.5 % (0-5); HEMATOCRIT 23.8 % (38.0-50.0); HEMOGLOBIN 7.7 G/DL (12.5-16.6); IMMATURE GRANULOCYTE (%) 0.7 % (0.0-0.7); LYMPHOCYTE (%) 16.7 % (15-42); LYMPHOCYTE COUNT 1.3 K/uL (1.0-2.8); MCH 31.7 PG (29.0-34.0); MCHC 32.4 G/DL (30.0-36.0); MCV 97.9 FL (86-99); MONOCYTE COUNT 0.4 K/uL (0-0.8); NEUTROPHIL (%) 76.7 % (45-76); NEUTROPHIL COUNT 5.7 K/uL (1.8-6.4); PLATELET COUNT 54 K/uL (156-360); RBC DIS.WIDTH-SD 54.4 % (39-53); RED BLOOD COUNT 2.43 M/uL (4.00-5.50); WHITE BLOOD COUNT 7.5 K/uL (4.1-10.2)
[2018-03-27 06:36] LABS: STOOL OCCULT BLD 1ST SPECIMEN NEGATIVE
[2018-03-27 06:36] LABS: CHLORIDE 113 MEQ/L (99-109); CREATININE 2.3 MG/DL (0.6-1.3); GFR ESTIMATE (CALCULATED) 31 mL/min/ (58.99-99999); GLUCOSE 79 mg/dL (70-99); SODIUM 144 MEQ/L (136-147); UREA NITROGEN (BUN) 62 mg/dL (9-23)
[2018-03-27 07:36] VITALS: BP 136/76
[2018-03-27 15:56] VITALS: BP 128/83
[2018-03-27 18:12] LABS: BASOPHIL (%) 0.3 % (0-1); EOSINOPHIL (%) 0.4 % (0-5); HEMATOCRIT 22.8 % (38.0-50.0); HEMOGLOBIN 7.4 G/DL (12.5-16.6); IMMATURE GRANULOCYTE (%) 0.5 % (0.0-0.7); LYMPHOCYTE COUNT 1.7 K/uL (1.0-2.8); MCHC 32.5 G/DL (30.0-36.0); MCV 98.7 FL (86-99); MONOCYTE (%) 5.7 % (3-12); MONOCYTE COUNT 0.4 K/uL (0-0.8); NEUTROPHIL (%) 70.1 % (45-76); NEUTROPHIL COUNT 5.1 K/uL (1.8-6.4); RBC DIS.WIDTH-CV 15.1 % (11.8-14.6); RBC DIS.WIDTH-SD 54.8 % (39-53); RED BLOOD COUNT 2.31 M/uL (4.00-5.50); WHITE BLOOD COUNT 7.3 K/uL (4.1-10.2)
[2018-03-27 18:55] LABS: HEMATOLOGY COMMENT 1 SN; IMM.PLATELET FRACTION 1.2 (1-7); PLAT.SUFFICIENCY DECREASED; PLATELET COUNT 47 K/uL (156-360)
[2018-03-28 00:32] VITALS: BP 132/72
[2018-03-28 06:11] LABS: BASOPHIL (%) 0.3 % (0-1); EOSINOPHIL (%) 0.6 % (0-5); HEMATOCRIT 24.1 % (38.0-50.0); HEMOGLOBIN 7.8 G/DL (12.5-16.6); IMMATURE GRANULOCYTE (%) 0.9 % (0.0-0.7); LYMPHOCYTE (%) 29.6 % (15-42); LYMPHOCYTE COUNT 2.1 K/uL (1.0-2.8); MCH 32.1 PG (29.0-34.0); MCHC 32.4 G/DL (30.0-36.0); MCV 99.2 FL (86-99); MONOCYTE (%) 7.2 % (3-12); MONOCYTE COUNT 0.5 K/uL (0-0.8); NEUTROPHIL (%) 61.4 % (45-76); NEUTROPHIL COUNT 4.3 K/uL (1.8-6.4); RBC DIS.WIDTH-CV 14.9 % (11.8-14.6); RBC DIS.WIDTH-SD 54.5 % (39-53); RED BLOOD COUNT 2.43 M/uL (4.00-5.50)
[2018-03-28 06:36] LABS: CHLORIDE 113 MEQ/L (99-109); CREATININE 2.6 MG/DL (0.6-1.3); GFR ESTIMATE (CALCULATED) 27 mL/min/ (58.99-99999); GLUCOSE 80 mg/dL (70-99); POTASSIUM 4.4 MEQ/L (3.7-5.4); SODIUM 143 MEQ/L (136-147); UREA NITROGEN (BUN) 58 mg/dL (9-23)
[2018-03-28 06:54] LABS: IMM.PLATELET FRACTION 1.1 (1-7); PLAT.SUFFICIENCY DECREASED; PLATELET COUNT 45 K/uL (156-360)
[2018-03-28 07:53] VITALS: BP 122/77
[2018-03-28 16:13] LABS: HEMATOCRIT 22.5 % (38.0-50.0); HEMOGLOBIN 7.6 G/DL (12.5-16.6); MCV 97.8 FL (86-99)
[2018-03-28 23:17] VITALS: BP 153/84
[2018-03-29 05:43] LABS: HEMATOCRIT 23.8 % (38.0-50.0); HEMOGLOBIN 7.9 G/DL (12.5-16.6); MCH 32.1 PG (29.0-34.0); MCHC 33.2 G/DL (30.0-36.0); MCV 96.7 FL (86-99); RBC DIS.WIDTH-CV 14.8 % (11.8-14.6); RBC DIS.WIDTH-SD 52.4 % (39-53); RED BLOOD COUNT 2.46 M/uL (4.00-5.50); WHITE BLOOD COUNT 7.4 K/uL (4.1-10.2)
[2018-03-29 06:06] LABS: CHLORIDE 111 MEQ/L (99-109); CREATININE 2.4 MG/DL (0.6-1.3); GFR ESTIMATE (CALCULATED) 30 mL/min/ (58.99-99999); GLUCOSE 87 mg/dL (70-99); POTASSIUM 3.7 MEQ/L (3.7-5.4); SODIUM 140 MEQ/L (136-147); UREA NITROGEN (BUN) 58 mg/dL (9-23)
[2018-03-29 06:43] LABS: PLAT.SUFFICIENCY VERY DECREASED
[2018-03-29 07:49] LABS: IMM.PLATELET FRACTION 1.5 (1-7); PLATELET COUNT 50 K/uL (156-360)
[2018-03-29 07:55] VITALS: BP 118/74
[2018-03-29 16:33] VITALS: BP 150/90
[2018-03-29 22:37] VITALS: BP 169/85
[2018-03-30 06:19] LABS: HEMATOCRIT 23.9 % (38.0-50.0); HEMOGLOBIN 7.7 G/DL (12.5-16.6); MCHC 32.2 G/DL (30.0-36.0); MCV 96.4 FL (86-99); RBC DIS.WIDTH-CV 14.6 % (11.8-14.6); RBC DIS.WIDTH-SD 52.1 % (39-53); RED BLOOD COUNT 2.48 M/uL (4.00-5.50); WHITE BLOOD COUNT 8.3 K/uL (4.1-10.2)
[2018-03-30 06:39] LABS: CHLORIDE 112 MEQ/L (99-109); CREATININE 2.1 MG/DL (0.6-1.3); GFR ESTIMATE (CALCULATED) 35 mL/min/ (58.99-99999); GLUCOSE 84 mg/dL (70-99); SODIUM 140 MEQ/L (136-147); UREA NITROGEN (BUN) 52 mg/dL (9-23)
[2018-03-30 06:55] VITALS: BP 136/90
[2018-03-30 07:45] LABS: PLAT.SUFFICIENCY DECREASED; PLATELET COUNT 53 K/uL (156-360)
[2018-03-30 09:03] LABS: ALBUMIN 2.2 G/DL (3.2-4.8)
[2018-03-30] MEDS ORDERED: DOXYCYCLINE HY100 M3 GT (11:25)
[2018-03-30] MEDS ORDERED: CALCIUM CARB1 TABLET GT (11:25)
[2018-03-30 15:35] VITALS: BP 158/91
[2018-04-20] MEDS ORDERED: DOXYCYCLINE HY100 MG GT (09:20)
[2018-04-20] MEDS ORDERED: NORVASC5 MG GT (09:22)
[2018-04-20] MEDS ORDERED: [UNRECOGNIZED DRUG - CODE] GT (09:25)
== END 2018-03-30 17:19 | disposition home health service (06) | DRG 699 ==
LOC: EME 09:53 → 5EAST 13:02 → EDOF 13:02 → ENRESERV 13:31 → 5EAST 15:26 → ENPENDDIS 03-30 → 5EAST 03-30 17:19
PROVIDERS: Hospitalist; Internal Medicine; Nurse Practitioner Family; Physician Assistant
PROC: 0DH67UZ Insertion of Feeding Device into Stomach, Via Natural or Artificial Opening (ICD-10-PCS; principal; 2018-03-25)
DX: T83.518A Infection and inflammatory reaction due to other urinary catheter, initial encounter (principal); Y84.6 Urinary catheterization as the cause of abnormal reaction of the patient, or of later complication, without mention of misadventure at the time of the procedure; N17.9 Acute kidney failure, unspecified; N39.0 Urinary tract infection, site not specified; N18.3 Chronic kidney disease, stage 3 (moderate); I12.9 Hypertensive chronic kidney disease with stage 1 through stage 4 chronic kidney disease, or unspecified chronic kidney disease; Z43.1 Encounter for attention to gastrostomy; E87.5 Hyperkalemia; G80.9 Cerebral palsy, unspecified; Z87.440 Personal history of urinary (tract) infections; Z79.01 Long term (current) use of anticoagulants; G40.909 Epilepsy, unspecified, not intractable, without status epilepticus; D69.6 Thrombocytopenia, unspecified; Z86.711 Personal history of pulmonary embolism; Z74.01 Bed confinement status; F73 Profound intellectual disabilities; G20 Parkinson's disease; N31.9 Neuromuscular dysfunction of bladder, unspecified; B95.62 Methicillin resistant Staphylococcus aureus infection as the cause of diseases classified elsewhere; Z86.73 Personal history of transient ischemic attack (TIA), and cerebral infarction without residual deficits; E83.51 Hypocalcemia; R31.0 Gross hematuria; T45.515A Adverse effect of anticoagulants, initial encounter
CPT/HCPCS: 36415; 71045; 74176; 76770; 80048; 80048 91; 81003; 82040; 82272; 82306; 82330; 83605; 85014; 85018; 85025; 85025 91; 85027; 85610; 85730; 86850; 86900; 86901; 86920; 87040; 87077; 87086; 87147; 87186; 93005; 99202; 99281; 99285; A6214; J0696; J1650; J3370; J7030

== ENCOUNTER 2018-03-31 22:27 | Emergency (ER) | payer OTHER ==
[~2018-03-31] VITALS: Ht 177.8 cm; Wt 68.1 kg
[~2018-03-31 22:27] MED LIST changes: +CALCIUM CARB1 TABLET GT; +DOXYCYCLINE HY100 M3 GT
[2018-04-01 00:38] LABS: MCH 31.9 PG (29.0-34.0); MCHC 32.9 G/DL (30.0-36.0); MCV 97.2 FL (86-99); RBC DIS.WIDTH-CV 14.9 % (11.8-14.6); RBC DIS.WIDTH-SD 53.1 % (39-53); RED BLOOD COUNT 2.16 M/uL (4.00-5.50); WHITE BLOOD COUNT 7.3 K/uL (4.1-10.2)
[2018-04-01 00:39] LABS: HEMOGLOBIN 6.9 G/DL (12.5-16.6)
[2018-04-01 00:41] LABS: BASOPHIL (%) 0.1 % (0-1); EOSINOPHIL (%) 0.3 % (0-5); IMMATURE GRANULOCYTE (%) 0.6 % (0.0-0.7); LYMPHOCYTE (%) 23.3 % (15-42); LYMPHOCYTE COUNT 1.7 K/uL (1.0-2.8); MONOCYTE (%) 4.3 % (3-12); MONOCYTE COUNT 0.3 K/uL (0-0.8); NEUTROPHIL (%) 71.4 % (45-76); NEUTROPHIL COUNT 5.2 K/uL (1.8-6.4)
[2018-04-01 00:47] LABS: ALBUMIN 2.3 g/dL (3.2-4.8)
[2018-04-01 00:48] LABS: CHLORIDE 107 mEq/L (99-109); SODIUM 138 mEq/L (136-147)
[2018-04-01 00:50] LABS: GLUCOSE 91 mg/dL (70-99); TOTAL PROTEIN 5.6 g/dL (6.4-8.3)
[2018-04-01 00:52] LABS: TOTAL BILIRUBIN 0.3 mg/dL (0.0-1.0)
[2018-04-01 00:53] LABS: ALKALINE PHOSPHATASE 71 IU/L (3-129)
[2018-04-01 00:54] LABS: GFR ESTIMATE (CALCULATED) 37 mL/min/ (58.99-99999)
[2018-04-01 00:55] LABS: AST (GOT) 12 IU/L (2-34); UREA NITROGEN (BUN) 70 mg/dL (9-23)
[2018-04-01 00:56] LABS: ALT (GPT) 9 IU/L (3-49)
[2018-04-01 01:01] LABS: APPEARANCE CLOUDY ((CLEAR)); BILIRUBIN NEGATIVE; BLOOD LARGE; COLOR YELLOW ((YELLOW)); GLUCOSE (STRIP) 50; KETONES NEGATIVE; LEUKOCYTES TRACE; NITRITE NEGATIVE; PROTEIN (STRIP) 100; SPECIFIC GRAVITY 1.011 (1.000-1.030); UROBILINOGEN 0.2 MG/DL (0.2-1.0)
[2018-04-01 01:16] LABS: RED BLOOD CELLS TNTC /HPF (0-5)
[2018-04-01 01:17] LABS: AMORPHOUS URATES CRYSTALS 3+; BACTERIA 3+ /HPF; EPITHELIAL CELLS 2+ /HPF; MUCUS 1+ /LPF; UCUL ADDED? YES
[2018-04-01 01:44] LABS: ANISOCYTOSIS 1+; GIANT PLATELETS 1+; IMM.PLATELET FRACTION 3.7 (1-7); PLAT.SUFFICIENCY VERY DECREASED; PLATELET COUNT 53 K/uL (156-360)
[2018-04-01 09:25] VITALS: BP 152/78
[2018-04-01 10:25] VITALS: BP 136/98
[2018-04-01 11:25] VITALS: BP 153/79
== END 2018-04-01 11:45 | disposition home or self-care (01) ==
LOC: EME 22:27
PROVIDERS: Emergency Medicine
PROC: 30233N1 Transfusion of Nonautologous Red Blood Cells into Peripheral Vein, Percutaneous Approach (ICD-10-PCS; principal; 2018-04-01)
DX: D64.9 Anemia, unspecified (principal); E83.51 Hypocalcemia; K94.23 Gastrostomy malfunction; E86.0 Dehydration; J44.9 Chronic obstructive pulmonary disease, unspecified; I12.9 Hypertensive chronic kidney disease with stage 1 through stage 4 chronic kidney disease, or unspecified chronic kidney disease; N18.9 Chronic kidney disease, unspecified; Z86.73 Personal history of transient ischemic attack (TIA), and cerebral infarction without residual deficits; G20 Parkinson's disease; K59.00 Constipation, unspecified; G80.9 Cerebral palsy, unspecified; Z87.891 Personal history of nicotine dependence; Z88.8 Allergy status to other drugs, medicaments and biological substances
CPT/HCPCS: 71045; 74176; 80053; 81003; 83605; 85025; 86850; 86900; 86901; 86905; 86920; 87040; 87086; 99281; 99285; P9016

== ENCOUNTER 2018-04-01 21:23 | Inpatient (IN) | payer OTHER ==
[~2018-04-01] VITALS: Ht 175.3 cm; Wt 80.3 kg
[2018-04-01 22:42] LABS: HEMATOCRIT 25.1 % (38.0-50.0); HEMOGLOBIN 8.5 G/DL (12.5-16.6); MCH 32.2 PG (29.0-34.0); MCHC 33.9 G/DL (30.0-36.0); MCV 95.1 FL (86-99); PLATELET COUNT 54 K/uL (156-360); RBC DIS.WIDTH-CV 15.8 % (11.8-14.6); RBC DIS.WIDTH-SD 54.8 % (39-53); WHITE BLOOD COUNT 9.3 K/uL (4.1-10.2)
[2018-04-01 22:43] LABS: RED BLOOD COUNT 2.64 M/uL (4.00-5.50)
[2018-04-01 22:51] LABS: ALBUMIN 2.4 g/dL (3.2-4.8); CHLORIDE 111 mEq/L (99-109); POTASSIUM 4.8 mEq/L (3.7-5.4); SODIUM 141 mEq/L (136-147)
[2018-04-01 22:53] LABS: GLUCOSE 88 mg/dL (70-99); TOTAL PROTEIN 5.8 g/dL (6.4-8.3)
[2018-04-01 22:55] LABS: TOTAL BILIRUBIN 0.4 mg/dL (0.0-1.0)
[2018-04-01 22:57] LABS: ALKALINE PHOSPHATASE 72 IU/L (3-129); CREATININE 1.9 mg/dL (0.6-1.3); GFR ESTIMATE (CALCULATED) 39 mL/min/ (58.99-99999)
[2018-04-01 22:58] LABS: AST (GOT) 14 IU/L (2-34); UREA NITROGEN (BUN) 80 mg/dL (9-23)
[2018-04-01 23:00] LABS: ALT (GPT) 9 IU/L (3-49)
[2018-04-01 23:07] LABS: PTT 30.8 SEC (25-37)
[2018-04-02 02:58] VITALS: BP 155/97
[2018-04-02 05:30] LABS: HEMATOCRIT 24.5 % (38.0-50.0); HEMOGLOBIN 8.2 G/DL (12.5-16.6); MCV 94.6 FL (86-99)
[2018-04-02 08:17] LABS: HEMATOCRIT 23.2 % (38.0-50.0); HEMOGLOBIN 7.9 G/DL (12.5-16.6); MCV 94.7 FL (86-99)
[2018-04-02 08:45] VITALS: BP 143/80
[2018-04-02 11:16] VITALS: BP 148/66
[2018-04-02 12:34] LABS: HEMATOCRIT 23.6 % (38.0-50.0); HEMOGLOBIN 7.9 G/DL (12.5-16.6); MCV 95.9 FL (86-99)
[2018-04-02 16:03] LABS: HEMATOCRIT 24.3 % (38.0-50.0); HEMOGLOBIN 8.1 G/DL (12.5-16.6); MCV 97.2 FL (86-99)
[2018-04-02 19:26] VITALS: BP 203/88
[2018-04-02 20:08] LABS: HEMATOCRIT 30.7 % (38.0-50.0); MCV 97.8 FL (86-99)
[2018-04-03 00:38] LABS: HEMATOCRIT 24.3 % (38.0-50.0); HEMOGLOBIN 8.4 G/DL (12.5-16.6); MCV 95.3 FL (86-99)
[2018-04-03 06:30] LABS: HEMATOCRIT 26.1 % (38.0-50.0); HEMOGLOBIN 8.5 G/DL (12.5-16.6); MCH 31.4 PG (29.0-34.0); MCHC 32.6 G/DL (30.0-36.0); MCV 96.3 FL (86-99); PLATELET COUNT 60 K/uL (156-360); RBC DIS.WIDTH-CV 15.6 % (11.8-14.6); RBC DIS.WIDTH-SD 54.1 % (39-53); RED BLOOD COUNT 2.71 M/uL (4.00-5.50); WHITE BLOOD COUNT 5.6 K/uL (4.1-10.2)
[2018-04-03 07:04] LABS: CHLORIDE 117 MEQ/L (99-109); GFR ESTIMATE (CALCULATED) 37 mL/min/ (58.99-99999); GLUCOSE 83 mg/dL (70-99); POTASSIUM 4.8 MEQ/L (3.7-5.4); SODIUM 142 MEQ/L (136-147); UREA NITROGEN (BUN) 81 mg/dL (9-23)
[2018-04-03 11:45] VITALS: BP 143/81
[2018-04-03 15:38] VITALS: BP 151/87
[2018-04-03 23:49] VITALS: BP 196/86
[2018-04-04 03:35] VITALS: BP 219/98
[2018-04-04 07:09] VITALS: BP 203/100
[2018-04-04 13:00] VITALS: BP 153/76
[2018-04-04 16:00] VITALS: BP 138/78
[2018-04-04 23:43] VITALS: BP 194/93
[2018-04-05 03:52] VITALS: BP 204/98
[2018-04-05 08:55] VITALS: BP 164/91
[2018-04-05] MEDS ORDERED: AMLODIPINE BESYL5 MG GT (12:39)
[2018-04-05] MEDS ORDERED: MIRALAX17 GM GT (12:40)
== END 2018-04-05 15:01 | disposition home health service (06) | DRG 683 ==
LOC: EME 21:23 → 4SOUTH 04-02 00:03 → EDOF 04-02 00:03 → ENRESERV 04-02 00:09 → 4SOUTH 04-02 02:39
PROVIDERS: Emergency Medicine; Internal Medicine; Physician Assistant Medical
PROC: 0DJ08ZZ Inspection of Upper Intestinal Tract, Via Natural or Artificial Opening Endoscopic (ICD-10-PCS; principal; 2018-04-02)
PROC: 3E0G76Z Introduction of Nutritional Substance into Upper GI, Via Natural or Artificial Opening (ICD-10-PCS; 2018-04-03)
DX: I12.9 Hypertensive chronic kidney disease with stage 1 through stage 4 chronic kidney disease, or unspecified chronic kidney disease (principal); K92.0 Hematemesis; D62 Acute posthemorrhagic anemia; I16.0 Hypertensive urgency; N39.0 Urinary tract infection, site not specified; G40.509 Epileptic seizures related to external causes, not intractable, without status epilepticus; G20 Parkinson's disease; K29.70 Gastritis, unspecified, without bleeding; K20.9 Esophagitis, unspecified; D46.9 Myelodysplastic syndrome, unspecified; G80.9 Cerebral palsy, unspecified; Z96.89 Presence of other specified functional implants; J44.9 Chronic obstructive pulmonary disease, unspecified; N18.3 Chronic kidney disease, stage 3 (moderate); K59.00 Constipation, unspecified; Z74.01 Bed confinement status; Z79.01 Long term (current) use of anticoagulants; Z86.711 Personal history of pulmonary embolism; Z87.891 Personal history of nicotine dependence; Z87.820 Personal history of traumatic brain injury; Z86.73 Personal history of transient ischemic attack (TIA), and cerebral infarction without residual deficits; Z22.322 Carrier or suspected carrier of Methicillin resistant Staphylococcus aureus; Z85.6 Personal history of leukemia
CPT/HCPCS: 70450; 71045; 74019; 74176; 76705; 80048; 80053; 81003; 83605; 85014; 85018; 85025; 85027; 85610; 85730; 86850; 86900; 86901; 86905; 86920; 87040; 87086; 87641; 99281; 99285; C9113; G0378; J0360; J7030; J7050; P9016

== ENCOUNTER 2018-04-24 07:33 | Day surgery (SDC) | payer OTHER ==
[~2018-04-24] VITALS: Ht 175.3 cm; Wt 73.0 kg
[~2018-04-24 07:33] MED LIST changes: +AMLODIPINE BESYL5 MG GT; +DOXYCYCLINE HY100 MG GT; +NORVASC5 MG GT; +[UNRECOGNIZED DRUG - CODE] GT
[2018-04-24 08:30] LABS: PLATELET COUNT 96 K/uL (156-360)
[2018-04-24 08:44] LABS: HEMATOCRIT 25.9 % (38.0-50.0)
[2018-04-24 08:47] LABS: HEMOGLOBIN 8.7 G/DL (12.5-16.6); MCV 95.6 FL (86-99)
[2018-04-24 09:00] VITALS: BP 173/90
[2018-04-24] MEDS ORDERED: NORCO 5/3251 TABLET PO (11:29)
[2018-04-24 12:05] VITALS: BP 127/83
[2018-04-24 13:25] VITALS: BP 127/76
== END 2018-04-24 13:45 | disposition home or self-care (01) ==
LOC: SDC 07:33
PROVIDERS: Surgery
DX: Z45.2 Encounter for adjustment and management of vascular access device (principal); I87.8 Other specified disorders of veins; D46.9 Myelodysplastic syndrome, unspecified; F73 Profound intellectual disabilities; I45.10 Unspecified right bundle-branch block; I10 Essential (primary) hypertension; Z86.73 Personal history of transient ischemic attack (TIA), and cerebral infarction without residual deficits; Z87.891 Personal history of nicotine dependence
CPT/HCPCS: 71045; 85014 GA; 85018 GA; 85049; C1751; C1769; C1894; J0690; J1100; J2405; J3010

== ENCOUNTER 2018-04-29 23:28 | Inpatient (IN) | payer OTHER ==
[~2018-04-29] VITALS: Ht 2590.8 cm; Wt 82.0 kg
[~2018-04-29 23:28] MED LIST changes: -FEOSOL44 MG/ML GT; +FEROSUL220 MG/51 GT; +NEUPRO1 EAC5 TD; +NORCO 5/3251 TABLET PO
[2018-04-30] VITALS (11 sets, daily range): BP systolic 118–157; BP diastolic 61–77
[2018-04-30 00:07] LABS: BASOPHIL (%) 0.2 % (0-1); EOSINOPHIL (%) 0.9 % (0-5); EOSINOPHIL COUNT 0.1 K/uL (0-0.3); HEMATOCRIT 22.4 % (38.0-50.0); HEMOGLOBIN 7.3 G/DL (12.5-16.6); IMMATURE GRANULOCYTE (%) 0.5 % (0.0-0.7); LYMPHOCYTE (%) 9.5 % (15-42); LYMPHOCYTE COUNT 1.1 K/uL (1.0-2.8); MCH 32.6 PG (29.0-34.0); MCHC 32.6 G/DL (30.0-36.0); MONOCYTE (%) 6.9 % (3-12); MONOCYTE COUNT 0.8 K/uL (0-0.8); NEUTROPHIL COUNT 9.1 K/uL (1.8-6.4); RBC DIS.WIDTH-CV 18.6 % (11.8-14.6); RBC DIS.WIDTH-SD 68.8 % (39-53); RED BLOOD COUNT 2.24 M/uL (4.00-5.50); WHITE BLOOD COUNT 11.1 K/uL (4.1-10.2)
[2018-04-30 00:08] LABS: PTT 28.9 SEC (25-37)
[2018-04-30 00:09] LABS: ALBUMIN 2.3 g/dL (3.2-4.8)
[2018-04-30 00:10] LABS: CHLORIDE 103 mEq/L (99-109); POTASSIUM 5.2 mEq/L (3.7-5.4); SODIUM 137 mEq/L (136-147)
[2018-04-30 00:13] LABS: GLUCOSE 107 mg/dL (70-99); TOTAL PROTEIN 5.9 g/dL (6.4-8.3)
[2018-04-30 00:14] LABS: TOTAL BILIRUBIN 0.3 mg/dL (0.0-1.0)
[2018-04-30 00:15] LABS: ALKALINE PHOSPHATASE 112 IU/L (3-129)
[2018-04-30 00:16] LABS: CREATININE 1.8 mg/dL (0.6-1.3); GFR ESTIMATE (CALCULATED) 41 mL/min/ (58.99-99999)
[2018-04-30 00:17] LABS: AST (GOT) 16 IU/L (2-34); UREA NITROGEN (BUN) 83 mg/dL (9-23)
[2018-04-30 00:18] LABS: APPEARANCE CLOUDY ((CLEAR)); BILIRUBIN NEGATIVE; BLOOD LARGE; COLOR YELLOW ((YELLOW)); GLUCOSE (STRIP) NEGATIVE; KETONES NEGATIVE; LEUKOCYTES MODERATE; NITRITE NEGATIVE; PROTEIN (STRIP) >=500; UROBILINOGEN 0.2 MG/DL (0.2-1.0)
[2018-04-30 00:19] LABS: ALT (GPT) < 3 IU/L (3-49)
[2018-04-30 00:25] LABS: BACTERIA 3+ /HPF; EPITHELIAL CELLS RARE /HPF; MUCUS TRACE /LPF; RED BLOOD CELLS TNTC /HPF (0-5); UCUL ADDED? YES; WHITE BLOOD CELLS TNTC /HPF (0-5)
[2018-04-30 00:31] LABS: CARBON DIOXIDE (BICARBONATE) 28.2 MEQ/L (20-31)
[2018-04-30 00:35] LABS: LIPASE 74 U/L (1.0-51.0)
[2018-04-30 00:41] LABS: TROP-I INTERPRETATION NEGATIVE; TROPONIN-I 0.02 ng/mL (0.0-0.30)
[2018-04-30 00:49] LABS: BASOPH.STIPPLING 2+; IMM.PLATELET FRACTION 1.5 (1-7); PLAT.SUFFICIENCY VERY DECREASED
[2018-04-30 00:56] LABS: PLATELET COUNT 46 K/uL (156-360)
[2018-04-30] MEDS ORDERED: LASIX10 MG/ML GT (01:49)
[2018-04-30 03:10] LABS: VALPROIC ACID (DEPAKOTE) 71.3 MCG/ML (50-100)
[2018-04-30 06:10] LABS: CHLORIDE 109 MEQ/L (99-109); CREATININE 1.7 MG/DL (0.6-1.3); GFR ESTIMATE (CALCULATED) 44 mL/min/ (58.99-99999); GLUCOSE 132 mg/dL (70-99); POTASSIUM 5.1 MEQ/L (3.7-5.4); SODIUM 139 MEQ/L (136-147); UREA NITROGEN (BUN) 82 mg/dL (9-23)
[2018-04-30 06:11] LABS: HEMATOCRIT 21.5 % (38.0-50.0); MCH 32.4 PG (29.0-34.0); MCHC 32.1 G/DL (30.0-36.0); MCV 100.9 FL (86-99); RBC DIS.WIDTH-CV 18.3 % (11.8-14.6); RBC DIS.WIDTH-SD 66.8 % (39-53); RED BLOOD COUNT 2.13 M/uL (4.00-5.50)
[2018-04-30 06:22] LABS: HEMOGLOBIN 6.9 G/DL (12.5-16.6)
[2018-04-30 06:48] LABS: IMM.PLATELET FRACTION 1.7 (1-7); PLAT.SUFFICIENCY DECREASED; PLATELET COUNT 43 K/uL (156-360)
[2018-05-01 04:45] VITALS: BP 136/76
[2018-05-01 08:00] VITALS: BP 142/94
[2018-05-01 10:03] LABS: BASOPHIL (%) 0 % (0-1); EOSINOPHIL (%) 0 % (0-5); HEMATOCRIT 27.9 % (38.0-50.0); IMM.PLATELET FRACTION 2.5 (1-7); IMMATURE GRANULOCYTE (%) 1.5 % (0.0-0.7); LYMPHOCYTE (%) 6.8 % (15-42); LYMPHOCYTE COUNT 0.4 K/uL (1.0-2.8); MCH 30.9 PG (29.0-34.0); MCHC 32.3 G/DL (30.0-36.0); MONOCYTE (%) 1.5 % (3-12); MONOCYTE COUNT 0.1 K/uL (0-0.8); NEUTROPHIL (%) 90.2 % (45-76); NEUTROPHIL COUNT 5.5 K/uL (1.8-6.4); PLATELET COUNT 42 K/uL (156-360); RBC DIS.WIDTH-CV 19.5 % (11.8-14.6); RBC DIS.WIDTH-SD 68.9 % (39-53); WHITE BLOOD COUNT 6.1 K/uL (4.1-10.2)
[2018-05-01 10:04] LABS: MCV 95.9 FL (86-99); RED BLOOD COUNT 2.91 M/uL (4.00-5.50)
[2018-05-01 10:31] LABS: PLAT.SUFFICIENCY DECREASED
[2018-05-01 13:02] VITALS: BP 136/82
[2018-05-01 17:29] VITALS: BP 159/99
[2018-05-01 19:45] VITALS: BP 167/59
[2018-05-02] VITALS (7 sets, daily range): BP systolic 131–179; BP diastolic 80–100
[2018-05-02 05:40] LABS: CHLORIDE 112 MEQ/L (99-109); GFR ESTIMATE (CALCULATED) 37 mL/min/ (58.99-99999); GLUCOSE 139 mg/dL (70-99); SODIUM 142 MEQ/L (136-147); UREA NITROGEN (BUN) 85 mg/dL (9-23)
[2018-05-02 09:55] LABS: BASOPHIL (%) 0.1 % (0-1); EOSINOPHIL (%) 0 % (0-5); HEMATOCRIT 29.4 % (38.0-50.0); HEMOGLOBIN 9.4 G/DL (12.5-16.6); IMMATURE GRANULOCYTE (%) 2.1 % (0.0-0.7); LYMPHOCYTE (%) 6.3 % (15-42); LYMPHOCYTE COUNT 0.5 K/uL (1.0-2.8); MCH 31.3 PG (29.0-34.0); MONOCYTE (%) 1.2 % (3-12); MONOCYTE COUNT 0.1 K/uL (0-0.8); NEUTROPHIL (%) 90.3 % (45-76); NEUTROPHIL COUNT 6.9 K/uL (1.8-6.4); PLATELET COUNT 52 K/uL (156-360); RBC DIS.WIDTH-SD 68.8 % (39-53); WHITE BLOOD COUNT 7.7 K/uL (4.1-10.2)
[2018-05-03 06:34] VITALS: BP 158/87
[2018-05-03 07:53] VITALS: BP 152/103
[2018-05-03 11:18] VITALS: BP 155/75
[2018-05-03 11:22] LABS: HEMATOCRIT 30.3 % (38.0-50.0); HEMOGLOBIN 9.2 G/DL (12.5-16.6); MCHC 30.4 G/DL (30.0-36.0); MCV 98.7 FL (86-99); NRBC (%) 0.3 /100 WBC (0-0); RBC DIS.WIDTH-CV 18.8 % (11.8-14.6); RBC DIS.WIDTH-SD 68.2 % (39-53); RED BLOOD COUNT 3.07 M/uL (4.00-5.50); WHITE BLOOD COUNT 6.3 K/uL (4.1-10.2)
[2018-05-03 11:27] LABS: PLATELET COUNT 69 K/uL (156-360)
[2018-05-03 11:40] LABS: CHLORIDE 115 MEQ/L (99-109); CREATININE 1.9 MG/DL (0.6-1.3); GFR ESTIMATE (CALCULATED) 39 mL/min/ (58.99-99999); GLUCOSE 129 mg/dL (70-99); POTASSIUM 5.3 MEQ/L (3.7-5.4); SODIUM 145 MEQ/L (136-147); UREA NITROGEN (BUN) 93 mg/dL (9-23)
[2018-05-03 13:05] VITALS: BP 154/86
[2018-05-03 15:58] VITALS: BP 163/93
[2018-05-03 23:52] VITALS: BP 143/78
[2018-05-04 08:39] LABS: HEMATOCRIT 29.2 % (38.0-50.0); HEMOGLOBIN 8.9 G/DL (12.5-16.6); MCH 30.3 PG (29.0-34.0); MCHC 30.5 G/DL (30.0-36.0); MCV 99.3 FL (86-99); NRBC (%) 0.6 /100 WBC (0-0); PLATELET COUNT 63 K/uL (156-360); RBC DIS.WIDTH-CV 18.6 % (11.8-14.6); RBC DIS.WIDTH-SD 68.2 % (39-53); RED BLOOD COUNT 2.94 M/uL (4.00-5.50); WHITE BLOOD COUNT 4.9 K/uL (4.1-10.2)
[2018-05-04 09:01] VITALS: BP 140/70
[2018-05-04 09:20] LABS: UREA NITROGEN (BUN) 105 mg/dL (9-23)
[2018-05-04 11:42] LABS: CHLORIDE 120 MEQ/L (99-109); CREATININE 2.1 MG/DL (0.6-1.3); GFR ESTIMATE (CALCULATED) 35 mL/min/ (58.99-99999); GLUCOSE 126 mg/dL (70-99); POTASSIUM 5.7 MEQ/L (3.7-5.4); SODIUM 146 MEQ/L (136-147)
[2018-05-04 15:24] LABS: CHLORIDE 119 MEQ/L (99-109); CREATININE 2.2 MG/DL (0.6-1.3); GFR ESTIMATE (CALCULATED) 33 mL/min/ (58.99-99999); GLUCOSE 116 mg/dL (70-99); POTASSIUM 5.8 MEQ/L (3.7-5.4); SODIUM 147 MEQ/L (136-147)
[2018-05-04 15:27] LABS: UREA NITROGEN (BUN) 106 mg/dL (9-23)
[2018-05-04 16:49] VITALS: BP 134/89
[2018-05-05 00:49] VITALS: BP 136/91
[2018-05-05 06:19] LABS: HEMATOCRIT 28.1 % (38.0-50.0); HEMOGLOBIN 8.7 G/DL (12.5-16.6); MCH 31.1 PG (29.0-34.0); MCV 100.4 FL (86-99); NRBC (%) 0.5 /100 WBC (0-0); PLATELET COUNT 59 K/uL (156-360); RBC DIS.WIDTH-CV 18.5 % (11.8-14.6); RBC DIS.WIDTH-SD 68.6 % (39-53); WHITE BLOOD COUNT 4.1 K/uL (4.1-10.2)
[2018-05-05 08:19] VITALS: BP 132/88
[2018-05-05 14:41] LABS: CHLORIDE 116 MEQ/L (99-109); CREATININE 2.5 MG/DL (0.6-1.3); GFR ESTIMATE (CALCULATED) 28 mL/min/ (58.99-99999); GLUCOSE 126 mg/dL (70-99); POTASSIUM 5.1 MEQ/L (3.7-5.4); SODIUM 150 MEQ/L (136-147); UREA NITROGEN (BUN) 120 mg/dL (9-23)
[2018-05-05 17:28] LABS: ALBUMIN 2.3 G/DL (3.2-4.8); ALKALINE PHOSPHATASE 64 IU/L (3-129); ALT (GPT) 5 IU/L (3-49); AST (GOT) 11 IU/L (2-34); DIRECT BILIRUBIN 0.2 mg/dL (0.0-0.3); TOTAL BILIRUBIN 0.3 MG/DL (0.0-1.0); TOTAL PROTEIN 5.2 G/DL (6.4-8.3)
[2018-05-05 23:11] VITALS: BP 161/90
[2018-05-06 07:47] VITALS: BP 165/75
[2018-05-07 00:09] VITALS: BP 143/82
[2018-05-08 00:26] VITALS: BP 180/84
[2018-05-08 06:25] VITALS: BP 183/96
[2018-05-08 07:16] VITALS: BP 149/80
[2018-05-08] MEDS ORDERED: MORPHINE CON20 MG/M1 SL (13:28)
[2018-05-08] MEDS ORDERED: ATIVAN0.5 MG PO (13:28)
[2018-05-08] MEDS ORDERED: HYOSCYAMINE0.125 M2 SL (13:28)
[2018-05-08 14:59] VITALS: BP 156/84
== END 2018-05-08 17:02 | disposition hospice, home (50) | DRG 871 ==
LOC: EME → EDBD 23:28 → 4EAST 04-30 02:38 → EDOF 04-30 02:38 → ENRESERV 04-30 02:40 → 4EAST 04-30 03:44 → ENRESERV 05-03 10:09 → 5SOUTH 05-03 12:58 → ENPENDDIS 05-08 15:21 → 5SOUTH 05-08 17:02
PROVIDERS: Emergency Medicine; Internal Medicine; Physician Assistant Medical
PROC: 30233N1 Transfusion of Nonautologous Red Blood Cells into Peripheral Vein, Percutaneous Approach (ICD-10-PCS; principal; 2018-04-30)
DX: A41.9 Sepsis, unspecified organism (principal); J69.0 Pneumonitis due to inhalation of food and vomit; N17.9 Acute kidney failure, unspecified; L89.322 Pressure ulcer of left buttock, stage 2; L89.152 Pressure ulcer of sacral region, stage 2; N39.0 Urinary tract infection, site not specified; I12.9 Hypertensive chronic kidney disease with stage 1 through stage 4 chronic kidney disease, or unspecified chronic kidney disease; N18.3 Chronic kidney disease, stage 3 (moderate); R06.03 Acute respiratory distress; J45.901 Unspecified asthma with (acute) exacerbation; D69.6 Thrombocytopenia, unspecified; E87.5 Hyperkalemia; K56.7 Ileus, unspecified; N31.9 Neuromuscular dysfunction of bladder, unspecified; R33.9 Retention of urine, unspecified; B96.89 Other specified bacterial agents as the cause of diseases classified elsewhere; Z16.24 Resistance to multiple antibiotics; G80.9 Cerebral palsy, unspecified; F79 Unspecified intellectual disabilities; G40.909 Epilepsy, unspecified, not intractable, without status epilepticus; I87.8 Other specified disorders of veins; K20.9 Esophagitis, unspecified; D63.8 Anemia in other chronic diseases classified elsewhere; D46.9 Myelodysplastic syndrome, unspecified; Z51.5 Encounter for palliative care; Z66 Do not resuscitate; Z74.01 Bed confinement status; Z87.891 Personal history of nicotine dependence; Z86.711 Personal history of pulmonary embolism; Z86.718 Personal history of other venous thrombosis and embolism; Z87.440 Personal history of urinary (tract) infections; Z87.820 Personal history of traumatic brain injury; Z93.1 Gastrostomy status; Z86.14 Personal history of Methicillin resistant Staphylococcus aureus infection
CPT/HCPCS: 71045; 74018; 80048; 80048 91; 80053; 80076; 80164; 80170; 80202; 81003; 82803; 83605; 83690; 83880; 84484; 85025; 85027; 85610; 85730; 86850; 86900; 86901; 86905; 86920; 87040; 87077; 87081; 87086; 87186; 87641; 88237 90; 88264 90; 88271 90; 88275 90; 93005; 94640; 94640 76; 94644; 94760; 94799; 99202; 99281; 99285; A6214; A6260; J0360; J0692; J1580; J1940; J2060; J2543; J2765; J2920; J2930; J3370; J7030; J7050; J7070; P9016; S0028